=== PATIENT | male | born 1975 | race Caucasian/White ===

== ENCOUNTER 2017-08-04 05:52 | Day surgery (SDC) | payer OTHER ==
[~2017-08-04] VITALS: Ht 185.4 cm; Wt 90.7 kg
[2017-08-04] MEDS ORDERED: MOBIC15 MG PO (06:06)
[2017-08-04] MEDS ORDERED: ADVIL LIQUI-GE200 MG PO (06:07)
[2017-08-04] MEDS ORDERED: ASPIRIN325 MG PO (06:07)
--- NOTE | 2017-08-04 08:40 | NUR ---
08/04/17 0839 Chrissy Adam 0891 PATIENT ARRIVES TO PACU AWAKE, ANSWERS QUESTIONS APPROPRIATELY. DENIES PAIN OR NAUSEA. RESP EVEN AND UNLABORED. ARRIVES WITH MASK AT 10 LITERS. MASK OFF ON ARRIVAL, SATS 96%-99% ON ROOM AIR.
--- NOTE | 2017-08-04 10:11 | NUR ---
LE 0910: PT ARRIVED TO DAY SURGERY AND APPEARS TO BE SLEEPING OFF AND ON. EYES ARE CLOSED. RR EVEN AND UNLABORED. PATIENT WILL ANSWER QUESTIONS AND THEN FALLS QUICKLY BACK TO SLEEP. PUDDING AND ICED WATER GIVEN. PT EATS THAT AND TOLERATES IT WELL. PRN GIVEN. 1010: PATIENT APPEARS TO BE SLEEPING WITH EYES CLOSED, BLANKET OVER HIS HEAD AND RR EVEN AND UNLABORED. PT WAKES TO LOUD RN VOICE AND REPORTS HIS PAIN IS "BETTER". PT FALLS QUICKLY BACK TO SLEEP WHEN LEFT UNSTIMULATED. PT DENIES ADD'L NEEDS @ THIS TIME.
[2017-08-04] MEDS ORDERED: NORCO 10-325 T1 EACH PO (10:35)
[2017-08-04] MEDS ORDERED: ULTRAM50 MG PO (10:36)
--- NOTE | 2017-08-04 11:22 | NUR ---
COFFEE AND CRACKERS GIVEN BY OFFICERS.
--- NOTE | 2017-08-04 11:53 | NUR ---
LE 1130: PT UP TO BR W/OFFICER STANDBY. PT AMBULATES WELL AND VOIDS. DC INSTRUCTIONS ARE GIVEN AND PATIENT VERBALIZES UNDERSTANDING. CALL REPORT GIVEN TO SERGE ARROYO AND HIS QUESTIONS ARE ANSWERED.
--- NOTE | 2017-08-06 07:12 | OR ---
[facility] [address], [place] [address] Signed DATE OF OPERATION: 08/04/2017 SURGEON: Leila Slaughter MD PREOPERATIVE DIAGNOSIS: Bunion deformity, right foot. POSTOPERATIVE DIAGNOSIS: Bunion deformity, right foot. PROCEDURE: Chevron bunionectomy. ANESTHESIA: General. SPECIMENS: There were no specimens. COMPLICATIONS: There were no complications. TOURNIQUET TIME: Under an hour. WHAT WAS DONE: The patient was taken to the operating room. After anesthesia was induced and airway secured, the patient was positioned, prepped and draped in a routine sterile fashion. A dorsal medial incision was made medial to the EHL tendon. Skin was divided sharply. Subcutaneous tissue was bluntly spread. The dorsal cutaneous nerves were identified and gently retracted. A dorsal capsulotomy was performed and the capsule was then stripped off the medial eminence. It was retracted plantarward and an oscillating saw was used to remove the medial eminence at the sagittal sulcus. We then did a standard chevron osteotomy with a long horizontal plantar portion and a shorter vertical dorsal portion. Once we completed the osteotomy, we displaced the capital fragment laterally about 6-1/2 mm. We then temporally held with a K-wire and fixed it with a PDS pin. This gave us excellent fixation in this young man's good bone. We then took an oscillating saw, I removed the medial prominence created by the lateral shaft of the capital fragment and then drilled several holes in the metatarsal neck area. Sutures of Vicryl were then passed through the drill holes through the medial cut surface and used to Electronically Signed By: LEILA SLAUGHTER MD 08/06/17 0712 PATIENT NAME: MAGGI SALMON OPERATIVE REPORT DATE OF : 77 REPORT #: [id number] PHYSICIAN: LEILA SLAUGHTER MD PCP: TASIA TAM MD REPORT IS CONFIDENTIAL AND NOT TO BE RELEASED WITHOUT AUTHORIZATION [facility] [address] [place] [id number] Signed advance the capsule back to the bone removing the redundant portion of the capsule. We then closed the capsule dorsally to the routine skin closure. Sterile bulky dressing was applied. He was awakened and taken to the recovery room where he arrived in stable condition. Counts were correct and antibiotic protocols were followed. Leila Slaughter MD WFB/MODL /[id number] Copies: ~ Electronically Signed By: LEILA SLAUGHTER MD 08/06/17 0712 PATIENT NAME: MAGGI SALMON OPERATIVE REPORT DATE OF : 77 REPORT #: [id number] PHYSICIAN: LEILA SLAUGHTER MD PCP: TASIA TAM MD REPORT IS CONFIDENTIAL AND NOT TO BE RELEASED WITHOUT AUTHORIZATION
== END 2017-08-04 11:40 | disposition home or self-care (01) ==
LOC: OPS 05:52 → DS 05:52 → OPS 06:45
PROVIDERS: Orthopaedic Surgery
PROC: 0QSN04Z Reposition Right Metatarsal with Internal Fixation Device, Open Approach (ICD-10-PCS; principal; 2017-08-04 06:45)
DX: M21.611 Bunion of right foot (principal); Z79.1 Long term (current) use of non-steroidal anti-inflammatories (NSAID); Z87.891 Personal history of nicotine dependence
CPT/HCPCS: 01480; 64445; 76942; J0690; J0735; J1100; J1885; J2250; J2405; J2704; J2765; J3010; J7120